=== PATIENT | female | born 1955 | race Caucasian/White ===

== ENCOUNTER 2025-01-04 06:48 | Observation (INO) | payer MEDICARE, OTHER ==
[2025-01-02 14:44] LABS: BASOPHILS % 0.5 % (0.0-1.0); EOSINOPHILS # (AUTO) 0.2 (0.0-0.4); EOSINOPHILS % 2.1 % (0.0-6.0); HEMATOCRIT 33.8 % (34.2-44.1); LYMPHOCYTES # (AUTO) 2.3 (1.0-3.2); LYMPHOCYTES % 27.9 % (18.0-39.1); MEAN CORPUSCULAR HEMOGLOBIN 30.8 pg (28-32); MEAN CORPUSCULAR HGB CONC 32.5 g/dL (31-35); MEAN CORPUSCULAR VOLUME 94.7 fL (81-99); MONOCYTES # (AUTO) 0.8 (0.2-0.8); MONOCYTES % 9.1 % (4.4-11.3); NEUTROPHILS # (AUTO) 4.9 (2.1-6.9); NEUTROPHILS % 60.2 % (38.7-80.0); PLATELET COUNT 288 x10e3/uL (140-360); RED BLOOD COUNT 3.57 x10e6/uL (3.6-5.1); RED CELL DISTRIBUTION WIDTH 13.3 % (11.7-14.4); WHITE BLOOD COUNT 8.21 x10e3/uL (4.8-10.8)
[2025-01-02 15:02] LABS: INR 1.58; PROTHROMBIN TIME 19.7 seconds (11.9-14.5)
[2025-01-02 15:03] LABS: PARTIAL THROMBOPLASTIN TIME 33.7 seconds (23.8-35.5)
[2025-01-02 15:06] LABS: ANION GAP 17.4 mmol/L (8-16); CALCIUM 9.6 mg/dL (8.4-10.2); CREATININE, SERUM 1.15 mg/dL (0.57-1.11); POTASSIUM 4.4 mmol/L (3.5-5.1)
[~2025-01-04] VITALS: Ht 157.5 cm; Wt 103.6 kg
[~2025-01-04 06:48] MED LIST: ARIMIDEX1 MG PO; ASPIRIN81 MG PO; ATORVASTATIN CA20 MG PO; CINNAMON500 MG PO; CITRACAL + BON1 EACH PO; FLECAINIDE ACE100 MG PO; LYRICA50 MG PO; MELOXICAM7.5 MG PO; METOPROLOL SUCC25 MG PO; MONTELUKAST SOD10 MG PO; OLMESARTAN-HCT1 EAC2 PO; VITAMIN B-121000 MCG IM; VITAMIN C1000 MG PO; VITAMIN D350 MCG PO; XARELTO20 MG PO
[2025-01-04] MEDS: LACTATED RINGER'S 1,000 ML ONE (08:10)
[2025-01-04 08:11] LABS: INR 0.88; PARTIAL THROMBOPLASTIN TIME 26.4 seconds (23.8-35.5); PROTHROMBIN TIME 12.5 seconds (11.9-14.5)
[2025-01-04] MEDS ORDERED: ONDANSETRON HCL INJ 2MG/ML 2ML 2 MG/ML VIAL ONE (08:30)
[2025-01-04] MEDS ORDERED: FENTANYL CITRATE/PF 100MCG/2 ML INJ ONE (08:30)
[2025-01-04] MEDS ORDERED: ACETAMINOPHEN 1000 MG/100 ML 100 ML IV ONE (08:30)
[2025-01-04] MEDS ORDERED: ROCURONIUM BROMIDE 1 ML IV ONE (08:30)
[2025-01-04] MEDS ORDERED: PROPOFOL IV EMULSION 10 MG/ML 20 ML VIAL ONE (08:30)
[2025-01-04] MEDS ORDERED: LIDOCAINE HCL 2% LOCAL INJ 5 ML SDV VIAL INJ ONE (08:30)
[2025-01-04] MEDS ORDERED: FAMOTIDINE 20 MG/2 ML VIAL IV ONE (08:30)
[2025-01-04] MEDS ORDERED: MIDAZOLAM HCL 2 MG/2 ML VIAL ONE (08:30)
[2025-01-04] MEDS ORDERED: DEXAMETHASONE SOD PHOS INJ 4 MG/ML SDV ONE ×2 (08:30→11:04)
[2025-01-04] MEDS ORDERED: SEVOFLURANE INHAL SOLN 250 ML PEN BTL ONE (08:30)
[2025-01-04] MEDS ORDERED: KETAMINE 50MG/5ML SYR ONE (09:55)
[2025-01-04] MEDS ORDERED: EPHEDRINE SULFATE INJ 50 MG/ML VIAL ONE (10:15)
[2025-01-04] MEDS ORDERED: LACTATED RINGER'S 1,000 ML ONE (10:34)
[2025-01-04] MEDS ORDERED: SUGAMMADEX SODIUM 200 MG/2 ML VIAL IV ONE (10:35)
[2025-01-04] MEDS ORDERED: HYDROCODON-ACE1 EA12 PO (11:06)
[2025-01-04] MEDS ORDERED: Vancomycin IV 1 GM VIAL ONE (11:10)
[2025-01-04] MEDS ORDERED: FLECAINIDE ACETATE 100 MG TAB PO SCH (11:15)
[2025-01-04] MEDS ORDERED: CEPACOL SORE THROAT LOZENGES PO PRN (11:15)
[2025-01-04] MEDS ORDERED: MORPHINE SULFATE 5 MG/ML VIAL IM PRN (11:15)
[2025-01-04] MEDS ORDERED: MAGNESIUM/ALUMINUM/SIMETHICONE 30 ML UDC PO PRN (11:15)
[2025-01-04] MEDS: LACTATED RINGER'S 1,000 ML IV SCH (11:15)
[2025-01-04] MEDS ORDERED: OXYCODONE/ACETAMINOPHEN 5-325 1 EACH TABLET PO PRN (11:15)
[2025-01-04] MEDS ORDERED: PROMETHAZINE HCL (IM) 25 MG/ML VIAL IM PRN (11:15)
[2025-01-04] MEDS ORDERED: ACETAMINOPHEN 325 MG TAB PO PRN (11:15)
[2025-01-04] MEDS: FENTANYL CITRATE/PF 100MCG/2 ML INJ ONE (11:30)
[2025-01-04] MEDS: CARISOPRODOL 350 MG TAB PO PRN (13:20)
[2025-01-04] MEDS: HYDROMORPHONE 2MG/ML IV PRN (15:07)
[2025-01-04 16:26] VITALS: BP 166/88; PULSE 54; RESP 18; TEMP 99.7; O2SAT 100
[2025-01-04 16:30] VITALS: BP 166/88; PULSE 54; RESP 18; TEMP 99.7; O2SAT 100
[2025-01-04 16:41] VITALS: BP 142/73; PULSE 76; RESP 18; TEMP 97.5; O2SAT 94
[2025-01-04] MEDS: PREGABALIN 50 MG CAP PO SCH (17:00)
[2025-01-04] MEDS: ONDANSETRON HCL INJ 2MG/ML 2ML 2 MG/ML VIAL IV PRN (17:00)
[2025-01-04 19:30] VITALS: BP 154/105; PULSE 65; RESP 18; TEMP 97.4; O2SAT 97
[2025-01-04 20:00] VITALS: BP 134/101; PULSE 65; RESP 18; TEMP 97.4; O2SAT 97
[2025-01-04] MEDS ORDERED: ZOLPIDEM TARTRATE 5 MG TAB PO PRN (21:00)
[2025-01-04] MEDS: ATORVASTATIN 20 MG TAB PO SCH (21:37)
[2025-01-04] MEDS: ASCORBIC ACID 500 MG TAB PO SCH (21:37)
[2025-01-04 23:18] VITALS: BP 126/79; PULSE 66; RESP 18; TEMP 97.7; O2SAT 96
[2025-01-05 03:30] VITALS: BP 113/66; PULSE 83; RESP 20; TEMP 98.1; O2SAT 95
[2025-01-05] MEDS: OXYCODONE/ACETAMINOPHEN 5-325 1 EACH TABLET PO PRN (03:48)
[2025-01-05] MEDS: CEFAZOLIN SODIUM 2 GM ONE (07:54)
[2025-01-05 08:00] VITALS: BP 117/66; PULSE 75; RESP 16; TEMP 98.6; O2SAT 98
[2025-01-05 08:23] VITALS: BP 117/66; PULSE 75; RESP 16; TEMP 98.6; O2SAT 98
[2025-01-05] MEDS: MONTELUKAST SODIUM 10 MG TAB PO SCH (08:58)
[2025-01-05 08:59] VITALS: BP 117/66; PULSE 75
[2025-01-05] MEDS: METOPROLOL SUCCINATE 25 MG TAB XL PO SCH (08:59)
[2025-01-05] MEDS: CYANOCOBALAMIN 1,000 MCG TAB PO SCH (08:59)
[2025-01-05] MEDS: ASPIRIN 81 MG CHEW TAB PO SCH (08:59)
[2025-01-05] MEDS: OLMESARTAN 20 MG TAB PO SCH (08:59)
[2025-01-05] MEDS: ANASTROZOLE 1 MG TAB PO SCH (09:00)
== END 2025-01-05 11:50 | disposition home or self-care (01) ==
LOC: OR 06:48 → PACU V 11:02 → MED/SURG 12:49
PROVIDERS: ADMIT Neurological Surgery; ATTEND Neurological Surgery
DX: M51.16 Intervertebral disc disorders with radiculopathy, lumbar region (principal); M48.062 Spinal stenosis, lumbar region with neurogenic claudication; I48.91 Unspecified atrial fibrillation; Z79.01 Long term (current) use of anticoagulants; E78.5 Hyperlipidemia, unspecified; I10 Essential (primary) hypertension; M19.90 Unspecified osteoarthritis, unspecified site; Z85.3 Personal history of malignant neoplasm of breast; Z86.718 Personal history of other venous thrombosis and embolism; Z01.810 Encounter for preprocedural cardiovascular examination; Z01.812 Encounter for preprocedural laboratory examination; Z01.818 Encounter for other preprocedural examination
CPT/HCPCS: 36415 ×2; 63047; 71046; 72020; 80048; 85025; 85610 ×2; 85730 ×2; 86850; 86870; 86880; 86900; 86905; 88304; 93005; 99001; 99252; G0378 ×2; J0131; J0690 ×2; J1100; J1170; J2003; J2250; J2405; J2704; J3010; J7121 ×2

== ENCOUNTER 2025-01-07 17:02 | Inpatient (IN) | payer MEDICARE, OTHER ==
[~2025-01-07] VITALS: Ht 157.5 cm; Wt 103.4 kg
[~2025-01-07 17:02] MED LIST changes: +HYDROCODON-ACE1 EA12 PO
[2025-01-07 17:47] LABS: BASOPHILS % 0.3 % (0.0-1.0); EOSINOPHILS # (AUTO) 0.2 (0.0-0.4); EOSINOPHILS % 2.1 % (0.0-6.0); HEMATOCRIT 35.6 % (34.2-44.1); LYMPHOCYTES # (AUTO) 2.7 (1.0-3.2); LYMPHOCYTES % 25.5 % (18.0-39.1); MEAN CORPUSCULAR HEMOGLOBIN 31.9 pg (28-32); MEAN CORPUSCULAR HGB CONC 33.7 g/dL (31-35); MEAN CORPUSCULAR VOLUME 94.7 fL (81-99); MONOCYTES % 9.9 % (4.4-11.3); NEUTROPHILS # (AUTO) 6.5 (2.1-6.9); NEUTROPHILS % 61.8 % (38.7-80.0); PLATELET COUNT 287 x10e3/uL (140-360); RED BLOOD COUNT 3.76 x10e6/uL (3.6-5.1); RED CELL DISTRIBUTION WIDTH 13.1 % (11.7-14.4); WHITE BLOOD COUNT 10.46 x10e3/uL (4.8-10.8)
[2025-01-07 18:03] LABS: ALBUMIN 3.5 g/dL (3.5-5.0); ALBUMIN/GLOBULIN RATIO 0.9 (0.8-2.0); ANION GAP 16.6 mmol/L (8-16); BILIRUBIN,TOTAL 0.8 mg/dL (0.2-1.2); CALCIUM 10.1 mg/dL (8.4-10.2); CREATININE, SERUM 1.08 mg/dL (0.57-1.11); POTASSIUM 3.6 mmol/L (3.5-5.1); TOTAL PROTEIN 7.2 g/dL (6.5-8.1)
[2025-01-07 18:11] LABS: TROPONIN I 0.004 ng/mL (0-0.300)
[2025-01-07] MEDS: DIGOXIN INJ 0.25 MG/ML 2 ML AMP IV STA (18:27)
[2025-01-07] MEDS: METOPROLOL TARTRATE INJ 1 MG/ML VIAL IV STA ×2 (18:44→19:50)
[2025-01-07] MEDS: DILTIAZEM HCL 5 MG/ML 5 ML VIAL IV STA ×2 (19:01→20:22)
[2025-01-07] MEDS ORDERED: AMIODARONE 900MG 900 MG in Premix Bag 1 BAG IV SCH (21:30)
[2025-01-07] MEDS ORDERED: AMIODARONE HCL 150 MG/100 ML BAG IV ONE (21:30)
[2025-01-07] MEDS ORDERED: Morphine 4mg INJECTION 4 MG/ML INJ IV PRN (21:45)
[2025-01-07] MEDS ORDERED: ONDANSETRON HCL INJ 2MG/ML 2ML 2 MG/ML VIAL IV PRN (21:45)
[2025-01-07] MEDS: SODIUM CHLORIDE 0.9% 1000ML 1,000 ML IV SCH (22:32)
[2025-01-07] MEDS: DILTIAZEM HCL IV SOLN 125 MG in SODIUM CHLORIDE 0.9% 100 ML IV SCH (22:33)
[2025-01-07] MEDS: HYDROCODONE/APAP 5MG-325MG TAB PO PRN (22:39)
[2025-01-07] MEDS: DILTIAZEM HCL IV 5MG/ML 25 ML VIAL ONE (22:43)
[2025-01-07 23:35] VITALS: BP 140/83; PULSE 70
[2025-01-08 01:27] VITALS: PULSE 70; RESP 20; TEMP 98.4; O2SAT 97
[2025-01-08] MEDS ORDERED: RIVAROXABAN 20 MG TABLET PO SCH (17:00)
== END 2025-01-08 01:30 | disposition home or self-care (01) | DRG 310 ==
LOC: ER 17:31 → ERHOLD 21:42
PROVIDERS: ADMIT Internal Medicine; ATTEND Internal Medicine
DX: I48.91 Unspecified atrial fibrillation (principal); I10 Essential (primary) hypertension; M54.9 Dorsalgia, unspecified; Z85.3 Personal history of malignant neoplasm of breast; Z90.10 Acquired absence of unspecified breast and nipple; Z91.041 Radiographic dye allergy status; Z91.040 Latex allergy status; Z88.6 Allergy status to analgesic agent; Z79.82 Long term (current) use of aspirin
CPT/HCPCS: 36415; 71045; 80053; 82550; 83690; 83880; 84484; 85025; 93005; 99284; J1160; J7030; J7050